=== PATIENT | female | born 1960 | race African-American/Black ===

== ENCOUNTER 2017-10-11 19:57 | Emergency (ER) | payer MEDICARE, OTHER ==
[2017-10-11 20:36] LABS: ADD MAN DIFF? NO
[2017-10-11 20:38] LABS: BASO # 0.2 x10^3/uL (0.0-0.2); BASO % 2 % (0-3); BILIRUBIN,URINE NEGATIVE (NEG); CLARITY,URINE CLEAR; COLOR,URINE YELLOW; EOS # 0.1 x10^3/uL (0.0-0.7); EOS % 1 % (0-3); GLUCOSE,URINE NEGATIVE (NEG); HEMATOCRIT 27.8 % (36.0-47.0); HEMOGLOBIN 9.4 g/dL (12.0-15.5); LYMPH # 2.7 x10^3/uL (1.0-4.8); LYMPH % 37 % (24-48); MEAN CORPUSCULAR HEMOGLOBIN 27 pg (25-35); MEAN CORPUSCULAR HGB CONC 34 g/dL (31-37); MEAN CORPUSCULAR VOLUME 80 fL (79-100); MONO # 0.9 x10^3/uL (0.0-1.1); MONO % 12 % (0-9); NEUT # 3.4 x10^3uL (1.8-7.7); NEUT % 47 % (31-73); NITRITE,URINE NEGATIVE (NEG); PH,URINE 6.5; PLATELET COUNT 376 x10^3/uL (140-400); PROTEIN,URINE NEGATIVE (NEG-TRACE); RED BLOOD COUNT 3.48 x10^6/uL (3.50-5.40); RED CELL DISTRIBUTION WIDTH 20.5 % (11.5-14.5); UROBILINOGEN,URINE 0.2 mg/dL (0.2 mg/dL); WHITE BLOOD COUNT 7.2 x10^3/uL (4.0-11.0)
[2017-10-11 20:50] LABS: ANION GAP 7 (6-14); BLOOD UREA NITROGEN 9 mg/dL (7-20); BUN/CREATININE RATIO 10 (6-20); CALCIUM 8.3 mg/dL (8.5-10.1); CARBON DIOXIDE 27 mmol/L (21-32); CHLORIDE 107 mmol/L (98-107); CREATININE 0.9 mg/dL (0.6-1.0); GLUCOSE 94 mg/dL (70-99); POTASSIUM 3.8 mmol/L (3.5-5.1); SODIUM 141 mmol/L (136-145)
[2017-10-11 20:54] LABS: BACTERIA,URINE FEW /HPF (0-FEW); HYALINE CASTS, URINE OCCASIONAL /HPF; RBC,URINE 20-40 /HPF (0-2); SQUAMOUS EPITHELIAL CELL,UR FEW /LPF
[2017-10-11 20:57] LABS: ALBUMIN 3.3 g/dL (3.4-5.0); ALBUMIN/GLOBULIN RATIO 0.7 (1.0-1.7); ALK PHOS 142 U/L (46-116); ALT (SGPT) 18 U/L (14-59); AST (SGOT) 24 U/L (15-37); TOTAL BILIRUBIN 0.2 mg/dL (0.2-1.0); TOTAL PROTEIN 7.9 g/dL (6.4-8.2)
[2017-10-11] MEDS ORDERED: methylPREDNISolone SOD SUCC PF 125 MG/2 ML VIAL. IV (21:00)
[2017-10-11] MEDS: IV NORMAL SALINE 1000ML BAG 1,000 ML IV (21:12)
[2017-10-11 21:13] LABS: PLT ESTIMATE ADEQUATE (ADEQUATE)
[2017-10-11 21:14] LABS: ANISOCYTOSIS MOD; MICROCYTOSIS SLIGHT; POLYCHROMASIA SLIGHT; SPHEROCYTES OCC
[2017-10-11 21:15] LABS: OVALOCYTES OCC; TARGET CELLS OCC
[2017-10-11] MEDS: ONDANSETRON PF 4 MG/2 ML VIAL. IV (22:01)
[2017-10-11] MEDS: fentaNYL PF VIAL 100 MCG/2 ML VIAL IV (22:02)
[2017-10-11] MEDS: CYCLOBENZAPRINE 10 MG TABLET. PO (23:03)
== END 2017-10-11 23:42 | disposition home or self-care (01) ==
LOC: ER 19:57
DX: M25.562 Pain in left knee (principal); M25.561 Pain in right knee; M25.572 Pain in left ankle and joints of left foot; M25.571 Pain in right ankle and joints of right foot; G35 Multiple sclerosis; Z88.8 Allergy status to other drugs, medicaments and biological substances
CPT/HCPCS: 36415; 80053; 81001; 85025; 96374; 96375; 99284-25; J2405; J3010; J7030